=== PATIENT | male | born 1940 | race Caucasian/White ===

== ENCOUNTER 2016-10-22 15:04 | Inpatient (IN) | payer MEDICARE, BC ==
--- NOTE | 2016-10-22 15:47 | EDM.PDOC ---
[id number]: COUGH, FEVER, SHORT OF BREATH Time Seen by Provider: 10/22/16 15:46 Source: Reports: Patient, Family History Limitations: Reports: No limitations - History of Present Illness INITIAL COMMENTS - FREE TEXT/NARRATIVE: pt has been ill for about 1 week. He has been spiking a high temp and he is very congested in his ches. Timing/Duration: Reports: Day(s):, Getting worse Severity: moderate Location, General: Reports: chest Associated Symptoms: Reports: cough, fever/chills, malaise, other ( slight nausea. ) - Related Data Allergies/ADRs: Allergies Allergy/AdvReac Type Severity Reaction Status Date / Time No Known Allergies Allergy Verified 06/27/16 06:29 Home Meds: Home Meds Magnesium Oxide [Magnesium] 500 mg PO DAILY 05/29/16 [History] Acetaminophen/Diphenhydramine [Tylenol Pm Ex-Strength Caplet] 1 each PO QPM PRN 06/27/16 [History] Calcium Carbonate [Calcium] 500 mg PO DAILY 06/27/16 [History] Acetaminophen [Tylenol Extra Strength] 2 tab PO Q6H PRN 07/13/16 [History] Aspirin [Ecotrin] 81 mg PO BID 10/22/16 [History] Albuterol [IJD: Albuterol] 2.5 mg NEB QID PRN #60 nebule 10/23/16 [Rx] Codeine/guaiFENesin [Robitussin AC] 10 ml PO Q4H #240 bottle 10/23/16 [Rx] Levofloxacin 750 mg PO QPM #6 tablet 10/23/16 [Rx] predniSONE [Prednisone] 20 mg PO DAILY #3 tablet 10/23/16 [Rx] Past Medical History HEENT History: Reports: Cataract, Impaired vision Gastrointestinal History: Reports: GERD, PUD Musculoskeletal History: Reports: Arthritis Neurological History: Reports: Concussion, Migraines Psychiatric History: Reports: Depression Endocrine/Metabolic History: Reports: Obesity/BMI 30+ - Infectious Disease History Infectious Disease History: Reports: Chicken pox, Measles, Mumps - Past Surgical History HEENT Surgical History: Reports: None GI Surgical History: Reports: None Endocrine Surgical History: Reports: None Neurological Surgical History: Reports: None Musculoskeletal Surgical History: Reports: None Social & Family History - Tobacco Use Smoking Status *Q: Never Smoker Second Hand Smoke Exposure: No - Caffeine Use Caffeine Use: Reports: Soda - Recreational Drug Use Recreational Drug Use: No ED ROS GENERAL - Review of Systems Review Of Systems: See Below Constitutional: Reports: fever, chills, malaise HEENT: Reports: No symptoms Respiratory: Reports: Shortness of Breath, Wheezing, Cough Cardiovascular: Reports: No symptoms Endocrine: Reports: no symptoms GI/Abdominal: Reports: No symptoms : Reports: no symptoms Musculoskeletal: Reports: no symptoms Skin: Reports: no symptoms ED EXAM, GENERAL - Physical Exam Exam: See Below Free Text/Narrative:: pt arrived feeling sob and sat ing at 89. He was very wheezy and got quite winded with activity. Exam Limited By: Respiratory distress General Appearance: alert, moderate distress, other ( sob with any activity. ) Ears: normal TMs Nose: normal inspection Throat/Mouth: Normal inspection Head: atraumatic Neck: normal inspection Respiratory/Chest: decreased breath sounds, rhonchi, wheezing Cardiovascular: regular rate, rhythm, tachycardia GI/Abdominal: soft, non tender (Male) Exam: Deferred Rectal (Males) Exam: Deferred Back Exam: normal inspection Extremities: normal inspection Neurological: alert, oriented, normal cognition Psychiatric: normal affect Course - Vital Signs Last Recorded V/S: Last Vital Signs Temp 36.6 C 10/23/16 11:00 Pulse 73 10/23/16 11:06 Resp 18 10/23/16 11:00 BP 139/81 10/23/16 11:00 Pulse Ox 95 10/23/16 11:00 - Orders/Labs/Meds Labs: Laboratory Tests 10/22/16 10/22/16 10/22/16 Range/Units 15:45 15:45 15:45 WBC 12.7 H (4.5-11.0) K/uL RBC 4.28 L (4.30-5.90) M/uL Hgb 11.0 L (12.0-15.0) g/dL Hct 35.0 L (40.0-54.0) % MCV 82 (80-98) fL MCH 26 L (27-31) pg MCHC 31 L (32-36) % Plt Count 258 (150-400) K/uL Neut % (Auto) 82 H (36-66) % Lymph % (Auto) 8 L (24-44) % [place] % (Auto) 9 H (2-6) % Eos % (Auto) 1 L (2-4) % Baso % (Auto) 0 (0-1) % Sodium 141 (140-148) mmol/L Potassium 4.5 (3.6-5.2) mmol/L Chloride 103 (100-108) mmol/L Carbon Dioxide 30 (21-32) mmol/L Anion Gap 7.9 (5.0-14.0) mmol/L BUN 11 (7-18) mg/dL Creatinine 1.1 (0.8-1.3) mg/dL Est Cr Clr Drug Dosing 59.13 mL/min Estimated GFR (MDRD) > 60 (>60) Glucose 108 H (74-106) mg/dL Lactic Acid (0.4-2.0) mmol/L Calcium 8.1 L (8.5-10.1) mg/dL Total Bilirubin 0.5 (0.2-1.0) mg/dL AST 22 (15-37) U/L ALT 30 (12-78) U/L Alkaline Phosphatase 68 (46-116) U/L C-Reactive Protein 16.64 H (0.0-0.3) mg/dL Hkr-C-Auwssblnhsn Pept (5-450) pg/mL Total Protein 7.4 (6.4-8.2) g/dL Albumin 2.9 L (3.4-5.0) g/dL Globulin 4.5 H (2.3-3.5) g/dL Albumin/Globulin Ratio 0.6 L (1.2-2.2) Amylase (25-115) U/L Lipase (73-393) U/L Urine Color Urine Appearance Urine pH (4.5-8.0) Ur Specific Oden (1.008-1.030) Urine Protein (NEGATIVE) mg/dL Urine Glucose (UA) (NEGATIVE) mg/dL Urine Ketones (NEGATIVE) mg/dL Urine Occult Blood (NEGATIVE) Urine Nitrite (NEGAITVE) Urine Bilirubin (NEGATIVE) Urine Urobilinogen (NORMAL) mg/dL Ur Leukocyte Esterase (NEGATIVE) Urine RBC (0-5) Urine WBC (0-5) Ur Epithelial Cells Amorphous Sediment Urine Bacteria Urine Mucus 10/22/16 10/22/16 10/22/16 Range/Units 15:57 16:24 18:48 WBC (4.5-11.0) K/uL RBC (4.30-5.90) M/uL Hgb (12.0-15.0) g/dL Hct (40.0-54.0) % MCV (80-98) fL MCH (27-31) pg MCHC (32-36) % Plt Count (150-400) K/uL Neut % (Auto) (36-66) % Lymph % (Auto) (24-44) % [place] % (Auto) (2-6) % Eos % (Auto) (2-4) % Baso % (Auto) (0-1) % Sodium (140-148) mmol/L Potassium (3.6-5.2) mmol/L Chloride (100-108) mmol/L Carbon Dioxide (21-32) mmol/L Anion Gap (5.0-14.0) mmol/L BUN (7-18) mg/dL Creatinine (0.8-1.3) mg/dL Est Cr Clr Drug Dosing mL/min Estimated GFR (MDRD) (>60) Glucose (74-106) mg/dL Lactic Acid (0.4-2.0) mmol/L Calcium (8.5-10.1) mg/dL Total Bilirubin (0.2-1.0) mg/dL AST (15-37) U/L ALT (12-78) U/L Alkaline Phosphatase (46-116) U/L C-Reactive Protein (0.0-0.3) mg/dL Maa-J-Scczhsydnea Pept 40 (5-450) pg/mL Total Protein (6.4-8.2) g/dL Albumin (3.4-5.0) g/dL Globulin (2.3-3.5) g/dL Albumin/Globulin Ratio (1.2-2.2) Amylase (25-115) U/L Lipase 197 (73-393) U/L Urine Color Yellow Urine Appearance Clear Urine pH 8.0 (4.5-8.0) Ur Specific Oden 1.010 (1.008-1.030) Urine Protein Negative (NEGATIVE) mg/dL Urine Glucose (UA) Normal (NEGATIVE) mg/dL Urine Ketones Negative (NEGATIVE) mg/dL Urine Occult Blood Negative (NEGATIVE) Urine Nitrite Negative (NEGAITVE) Urine Bilirubin Negative (NEGATIVE) Urine Urobilinogen 1 (NORMAL) mg/dL Ur Leukocyte Esterase Negative (NEGATIVE) Urine RBC 0-5 (0-5) Urine WBC 0-5 (0-5) Ur Epithelial Cells Rare Amorphous Sediment Rare Urine Bacteria Not seen Urine Mucus Rare 10/22/16 10/22/16 Range/Units 18:48 18:48 WBC (4.5-11.0) K/uL RBC (4.30-5.90) M/uL Hgb (12.0-15.0) g/dL Hct (40.0-54.0) % MCV (80-98) fL MCH (27-31) pg MCHC (32-36) % Plt Count (150-400) K/uL Neut % (Auto) (36-66) % Lymph % (Auto) (24-44) % [place] % (Auto) (2-6) % Eos % (Auto) (2-4) % Baso % (Auto) (0-1) % Sodium (140-148) mmol/L Potassium (3.6-5.2) mmol/L Chloride (100-108) mmol/L Carbon Dioxide (21-32) mmol/L Anion Gap (5.0-14.0) mmol/L BUN (7-18) mg/dL Creatinine (0.8-1.3) mg/dL Est Cr Clr Drug Dosing mL/min Estimated GFR (MDRD) (>60) Glucose (74-106) mg/dL Lactic Acid 2.1 H (0.4-2.0) mmol/L Calcium (8.5-10.1) mg/dL Total Bilirubin (0.2-1.0) mg/dL AST (15-37) U/L ALT (12-78) U/L Alkaline Phosphatase (46-116) U/L C-Reactive Protein (0.0-0.3) mg/dL Inj-U-Mojawudzjkg Pept (5-450) pg/mL Total Protein (6.4-8.2) g/dL Albumin (3.4-5.0) g/dL Globulin (2.3-3.5) g/dL Albumin/Globulin Ratio (1.2-2.2) Amylase 24 L (25-115) U/L Lipase (73-393) U/L Urine Color Urine Appearance Urine pH (4.5-8.0) Ur Specific Oden (1.008-1.030) Urine Protein (NEGATIVE) mg/dL Urine Glucose (UA) (NEGATIVE) mg/dL Urine Ketones (NEGATIVE) mg/dL Urine Occult Blood (NEGATIVE) Urine Nitrite (NEGAITVE) Urine Bilirubin (NEGATIVE) Urine Urobilinogen (NORMAL) mg/dL Ur Leukocyte Esterase (NEGATIVE) Urine RBC (0-5) Urine WBC (0-5) Ur Epithelial Cells Amorphous Sediment Urine Bacteria Urine Mucus Meds: Medications Discontinued Medications Generic Name Dose Route Start Last Admin Trade Name Freq PRN Reason Stop Dose Admin Acetaminophen 650 mg 10/22/16 16:34 10/22/16 16:53 Tylenol PO 10/22/16 16:35 650 mg NOW ONE Administration Acetaminophen 650 mg 10/22/16 19:59 Tylenol PO Q4H PRN Pain (Mild 1-3)/fever Albuterol 2.5 mg 10/22/16 15:50 10/22/16 16:06 Proventil Neb Soln NEB 10/22/16 15:51 2.5 mg ONETIME ONE Administration Albuterol 2.5 mg 10/22/16 17:15 10/22/16 17:30 Proventil Neb Soln NEB 10/22/16 17:16 2.5 mg ONETIME ONE Administration Albuterol 2.5 mg 10/22/16 19:59 10/23/16 11:06 Proventil Neb Soln NEB 2.5 mg Q4H KATHRINE Administration Albuterol/Ipratropium 3 ml 10/22/16 19:59 Duoneb 3.0-0.5 Mg/3 Ml NEB Q4H PRN Shortness Of Breath/wheezing Bisacodyl 5 mg 10/22/16 19:59 Dulcolax PO DAILY PRN Constipation Diphenhydramine HCl 25 mg 10/22/16 21:00 10/22/16 21:44 Benadryl PO 25 mg BEDTIME KATHRINE Administration Docusate Sodium 100 mg 10/22/16 19:59 Colace PO BID PRN Constipation Enoxaparin Sodium 40 mg 10/22/16 21:00 10/22/16 21:44 Lovenox SUBCUT 40 mg Q24H KATHRINE Administration Guaifenesin/Codeine Phosphate 10 ml 10/22/16 20:58 10/22/16 23:56 Robitussin Ac PO 10 ml Q4H PRN Administration Cough Sodium Chloride 1,000 mls @ 25 mls/hr 10/22/16 16:30 10/22/16 16:53 Normal Saline IV 25 mls/hr ASDIRECTED KATHRINE Administration Levofloxacin/Dextrose 500 mg/ 100 mls @ 100 mls/hr 10/22/16 17:16 10/22/16 17 :30 Premix IV 10/22/16 18:15 100 mls/hr ONETIME ONE Administration Ceftriaxone Sodium 1 gm/ 50 mls @ 100 mls/hr 10/22/16 18:49 10/22/16 19:16 Sodium Chloride IV 10/22/16 19:18 100 mls/hr ONETIME ONE Administration Levofloxacin/Dextrose 750 mg/ 150 mls @ 100 mls/hr 10/23/16 16:00 Premix IV Q24H KATHRINE Sodium Chloride 1,000 mls @ 250 mls/hr 10/22/16 21:00 10/22/16 21:44 Normal Saline IV 10/23/16 00:59 Not Given ASDIRECTED KATHRINE Ceftriaxone Sodium 1 gm/ 50 mls @ 100 mls/hr 10/23/16 20:00 Sodium Chloride IV Q24H KATHRINE Sodium Chloride 1,000 mls @ 125 mls/hr 10/22/16 21:00 10/23/16 05:12 Normal Saline IV 125 mls/hr ASDIRECTED KATHRINE Administration Lorazepam 1 mg 10/22/16 19:59 Ativan IV Q6H PRN Nausea/Vomiting Methylprednisolone Sodium Succinate 125 mg 10/22/16 17:16 10/22/16 17:30 Solu-Medrol IVPUSH 10/22/16 17:17 125 mg ONETIME ONE Administration Morphine Sulfate 2 mg 10/22/16 19:59 Morphine IVPUSH Q2H PRN Pain (severe 7-10) Ondansetron HCl 4 mg 10/22/16 16:31 10/22/16 16:53 Zofran IVPUSH 10/22/16 16:32 4 mg ONETIME ONE Administration Ondansetron HCl 4 mg 10/22/16 19:59 Zofran Odt PO Q6H PRN Nausea able to take PO Oxycodone HCl 5 mg 10/22/16 19:59 Oxycodone PO Q4H PRN Pain (moderate 4-6) Pantoprazole Sodium 40 mg 10/22/16 21:00 10/23/16 08:59 Protonix Iv IVPUSH 40 mg DAILY KATHRINE Administration - Re-Assessments/Exams Free Text/Narrative Re-Assessment/Exam: 10/22/16 17:28 Pt has a crp of 16.75. his wbc is 12,ooo. His chesr xray does not show a infiltrate. . He is very wheezy and is nauseated. Pt weas offered Hosp admission and refused that. He will be given levoquin 500mg, albuterol neb x 2. solumedrol 125. iv. 10/22/16 17:30 Departure - Departure Time of Disposition: 15:00 Disposition: Home, Self-Care 01 Condition: fair Clinical Impression: Bronchitis, Bronchospasm, Dehydration
[2016-10-22] MEDS ORDERED: Albuterol 0.083% 2.5 MG/3 ML Neb Soln NEB ONE ×2 (15:50→17:15)
[2016-10-22] MEDS ORDERED: Sodium Chloride 0.9% 1,000 ML IV SCH ×3 (16:30→21:00)
[2016-10-22] MEDS ORDERED: Ondansetron 4 MG/2 ML SDV IVPUSH ONE (16:31)
[2016-10-22] MEDS ORDERED: Acetaminophen 325 MG Tab PO ONE (16:34)
[2016-10-22] MEDS ORDERED: methylPREDNISolone Sodium Succinate 125 MG/2 ML SDV IVPUSH ONE (17:16)
[2016-10-22] MEDS ORDERED: Levofloxacin/Dextrose 5%-Water 500 MG in Premix Bag 1 BAG IV ONE (17:16)
[2016-10-22] MEDS ORDERED: cefTRIAXone 1 GM in Sodium Chloride 0.9% 50 ML IV ONE (18:49)
[2016-10-22] MEDS ORDERED: Bisacodyl 5 MG Tab PO PRN (19:59)
[2016-10-22] MEDS ORDERED: oxyCODONE 5 MG Tab PO PRN (19:59)
[2016-10-22] MEDS ORDERED: Albuterol/Ipratropium 3.0-0.5 MG/3 ML Neb Soln NEB PRN (19:59)
[2016-10-22] MEDS ORDERED: Docusate Sodium 100 MG Cap PO PRN (19:59)
[2016-10-22] MEDS ORDERED: Acetaminophen 325 MG Tab PO PRN (19:59)
[2016-10-22] MEDS ORDERED: Ondansetron 4 MG Tab.DIS PO PRN (19:59)
[2016-10-22] MEDS ORDERED: LORazepam 2 MG/ML MDV IV PRN (19:59)
[2016-10-22] MEDS ORDERED: Morphine 2 MG/ML Syringe IVPUSH PRN (19:59)
[2016-10-22] MEDS ORDERED: Codeine/guaiFENesin 100mg-10 MG/5 ML Syrup 10 ML Cup PO PRN (20:58)
[2016-10-22] MEDS ORDERED: diphenhydrAMINE 25 MG Cap PO SCH (21:00)
[2016-10-22] MEDS ORDERED: Enoxaparin 40 MG/0.4 ML Syringe SUBCUT SCH (21:00)
[2016-10-22] MEDS: Albuterol 0.083% 2.5 MG/3 ML Neb Soln NEB SCH ×2 (21:44→23:56)
[2016-10-22] MEDS: Pantoprazole 40 MG Vial IVPUSH SCH (21:44)
[2016-10-23] MEDS: Albuterol 0.083% 2.5 MG/3 ML Neb Soln NEB SCH ×3 (03:57→11:06)
--- NOTE | 2016-10-23 04:14 | PCM.HP ---
H&P History of Present Illness - General Admit Problem/Dx: Admission Diagnosis/Problem Admission Diagnosis/Problem Pneumonia Source of Information: Patient History Limitations: Reports: No limitations - History of Present Illness Initial Comments - Free Text/Narative: 10/22/16 17:28 Pt has a crp of 16.75. his wbc is 12,ooo. His chesr xray does not show a infiltrate. He is very wheezy and is nauseated. Pt was offered Hosp admission and refused that. He will be given levoquin 500mg, albuterol neb x 2. solumedrol 125. iv. 10/22/16 17:30 Onset of Symptoms: Reports: gradual Duration of Symptoms: Reports: Day(s): Location: Reports: generalized Improves with: Reports: Rest Worsens with: Reports: Movement Associated Symptoms: Reports: denies other symptoms - Related Data Allergies/Adverse Reactions: Allergies Allergy/AdvReac Type Severity Reaction Status Date / Time No Known Allergies Allergy Verified 06/27/16 06:29 Home Medications: Home Meds Magnesium Oxide [Magnesium] 500 mg PO DAILY 05/29/16 [History] Acetaminophen/Diphenhydramine [Tylenol Pm Ex-Strength Caplet] 1 each PO QPM PRN 06/27/16 [History] Calcium Carbonate [Calcium] 500 mg PO DAILY 06/27/16 [History] Acetaminophen [Tylenol Extra Strength] 2 tab PO Q6H PRN 07/13/16 [History] Aspirin [Ecotrin] 81 mg PO BID 10/22/16 [History] Albuterol [IJD: Albuterol] 2.5 mg NEB QID PRN #60 nebule 10/23/16 [Rx] Codeine/guaiFENesin [Robitussin AC] 10 ml PO Q4H #240 bottle 10/23/16 [Rx] Levofloxacin 750 mg PO QPM #6 tablet 10/23/16 [Rx] predniSONE [Prednisone] 20 mg PO DAILY #3 tablet 10/23/16 [Rx] Past Medical History HEENT History: Reports: Cataract, Impaired vision Gastrointestinal History: Reports: GERD, PUD Musculoskeletal History: Reports: Arthritis Neurological History: Reports: Concussion, Migraines Psychiatric History: Reports: Depression Endocrine/Metabolic History: Reports: Obesity/BMI 30+ - Infectious Disease History Infectious Disease History: Reports: Chicken pox, Measles, Mumps - Past Surgical History HEENT Surgical History: Reports: None GI Surgical History: Reports: None Endocrine Surgical History: Reports: None Neurological Surgical History: Reports: None Musculoskeletal Surgical History: Reports: None Social & Family History - Tobacco Use Smoking Status *Q: Never Smoker Second Hand Smoke Exposure: No - Caffeine Use Caffeine Use: Reports: None - Recreational Drug Use Recreational Drug Use: No - Living Situation & Occupation Living situation: Reports: Occupation: employed (lives with , has 12 children, 68 Grand 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.) H&P Review of Systems - Review of Systems: Review Of Systems: See Below General: Reports: fever, chills, malaise, weakness, decreased appetite HEENT: Reports: sinus congestion Pulmonary: Reports: Shortness of Breath, Wheezing, Pleuritic Chest Pain, Cough, Sputum Gastrointestinal: Reports: Nausea Genitourinary: Reports: no symptoms Musculoskeletal: Reports: no symptoms Skin: Reports: no symptoms Psychiatric: Reports: no symptoms Neurological: Reports: No Symptoms Hematologic/Lymphatic: Reports: no symptoms Immunologic: Reports: no symptoms Exam - Exam Exam: See Below - Vital Signs Vital Signs: Last Vital Signs Temp 36.4 C 10/23/16 03:59 Pulse 82 10/23/16 03:59 Resp 16 10/23/16 03:59 BP 139/82 10/23/16 03:59 Pulse Ox 97 10/23/16 03:59 Weight: 99.79 kg - Exam Quality Assessment: supplemental oxygen General: alert, oriented, 4 HEENT: PERRLA, Conjunctiva clear, EACs clear, EOMI, Hearing intact, Mucosa moist & pink, Nares patent, Normal nasal septum, Posterior pharynx clear, TMs clear, Other (natural teeth) Neck: supple, trachea midline, 2 Lungs: Decreased breath sounds, Crackles, Rales, Rhonchi Cardiovascular: regular rate, regular rhythm, normal S1, normal S2 Abdomen: Normal Bowel Sounds, Soft (Male) Exam: Deferred Rectal (Males) Exam: Deferred Back Exam: normal inspection, full range of motion, NT Extremities: normal inspection Skin: warm, dry, intact Neurological: reflexes equal bilateral Neuro Extensive - Mental Status: alert, oriented x3, normal mood/affect, normal cognition, memory intact Neuro Extensive - Motor, Sensory, Reflexes: normal gait, normal reflexes Psychiatric: alert, normal affect, normal mood - Patient Data Result Diagrams: 10/23/16 04:20 10/23/16 04:41 *Q Meaningful Use (ADM) - VTE *Q VTE Criteria *Q: - Stroke *Q Stroke Criteria *Q: - AMI *Q AMI Criteria *Q: - Problem List (1) Bronchitis SNOMED Code(s): 75853132 ICD Code: J40 - BRONCHITIS, NOT SPECIFIED ACUTE OR CHRONIC Status: Acute Priority: High (2) Dehydration SNOMED Code(s): 92947444 ICD Code: E86.0 - DEHYDRATION Status: Acute Problem List Initiated/Reviewed/Updated: Yes Orders Last 24hrs: Active Orders 24 hr Category Date Time Status Patient Status [ADT] Routine ADT 10/22/16 19:59 Active Intake and Output [RC] QSHIFT Care 10/22/16 19:59 Active Notify Provider Vital Signs [RC] ASDIRECTED Care 10/22/16 19:59 Active Oxygen Therapy [RC] PRN Care 10/22/16 19:59 Active Pneumonia Education [RC] DAILY Care 10/22/16 19:59 Active Pulse Oximetry [RC] CONTINUOUS Care 10/22/16 19:59 Active Up ad Whitney [RC] ASDIRECTED Care 10/22/16 19:59 Active VTE/DVT Education [RC] Per Unit Routine Care 10/22/16 19:59 Active Vital Signs [RC] Q4H Care 10/22/16 19:59 Active Regular Diet [DIET] Diet 10/22/16 Breakfast Active Chest 2V [CR] AM Exams 10/23/16 05:11 Ordered BASIC METABOLIC PANEL,BMP [CHEM] Timed Lab 10/23/16 05:10 Ordered CBC WITH AUTO DIFF [HEME] AM Lab 10/23/16 05:11 Ordered Acetaminophen [Tylenol] Med 10/22/16 19:59 Active 650 mg PO Q4H PRN Albuterol [Proventil Neb Soln] Med 10/22/16 19:59 Active 2.5 mg NEB Q4H Albuterol/Ipratropium [DuoNeb 3.0-0.5 MG/3 ML] Med 10/22/16 19:59 Active 3 ml NEB Q4H PRN Bisacodyl [Dulcolax] Med 10/22/16 19:59 Active 5 mg PO DAILY PRN Codeine/guaiFENesin [Robitussin AC] Med 10/22/16 20:58 Active 10 ml PO Q4H PRN Docusate Sodium [Colace] Med 10/22/16 19:59 Active 100 mg PO BID PRN Enoxaparin [Lovenox] Med 10/22/16 21:00 Active 40 mg SUBCUT Q24H LORazepam [Ativan] Med 10/22/16 19:59 Active 1 mg IV Q6H PRN Levofloxacin/Dextrose 5%-Water [Levaquin in D5W 750 MG/ Med 10/23/16 16:00 Active 150 ML] 750 mg Premix Bag 1 bag IV Q24H Morphine Med 10/22/16 19:59 Active 2 mg IVPUSH Q2H PRN Ondansetron [Zofran ODT] Med 10/22/16 19:59 Active 4 mg PO Q6H PRN Pantoprazole [ProTONIX IV] Med 10/22/16 21:00 Active 40 mg IVPUSH DAILY Sodium Chloride 0.9% [Normal Saline] 1,000 ml Med 10/22/16 21:00 Active IV ASDIRECTED cefTRIAXone [Rocephin] 1 gm Med 10/23/16 20:00 Active Sodium Chloride 0.9% [Normal Saline] 50 ml IV Q24H diphenhydrAMINE [Benadryl] Med 10/22/16 21:00 Active 25 mg PO BEDTIME oxyCODONE Med 10/22/16 19:59 Active 5 mg PO Q4H PRN Blood Culture x2 Reflex Set [OM.PC] Urgent Oth 10/22/16 19:59 Ordered Give supplemental Oxygen PRN [COMM] Routine Oth 10/22/16 19:59 Ordered Resuscitation Status Routine Resus Stat 10/22/16 19:34 Ordered Medication Orders Acetaminophen (Tylenol) 650 mg PO Q4H PRN PRN Reason: Pain (Mild 1-3)/fever Albuterol (Proventil Neb Soln) 2.5 mg NEB Q4H KATHRINE Last Admin: 10/23/16 03:57 Dose: 2.5 mg Admin: 10/22/16 23:56 Dose: 2.5 mg Admin: 10/22/16 21:44 Dose: 2.5 mg Albuterol/Ipratropium (Duoneb 3.0-0.5 Mg/3 Ml) 3 ml NEB Q4H PRN PRN Reason: Shortness Of Breath/wheezing Bisacodyl (Dulcolax) 5 mg PO DAILY PRN PRN Reason: Constipation Diphenhydramine HCl (Benadryl) 25 mg PO BEDTIME [facility] Last Admin: 10/22/16 21:44 Dose: 25 mg Docusate Sodium (Colace) 100 mg PO BID PRN PRN Reason: Constipation Enoxaparin Sodium (Lovenox) 40 mg SUBCUT Q24H [facility] Last Admin: 10/22/16 21:44 Dose: 40 mg Guaifenesin/Codeine Phosphate (Robitussin Ac) 10 ml PO Q4H PRN PRN Reason: Cough Last Admin: 10/22/16 23:56 Dose: 10 ml Levofloxacin/Dextrose 750 mg/ (Premix) 150 mls @ 100 mls/hr IV Q24H [facility] Ceftriaxone Sodium 1 gm/ (Sodium Chloride) 50 mls @ 100 mls/hr IV Q24H [facility] Sodium Chloride (Normal Saline) 1,000 mls @ 125 mls/hr IV ASDIRECTED [facility] Lorazepam (Ativan) 1 mg IV Q6H PRN PRN Reason: Nausea/Vomiting Morphine Sulfate (Morphine) 2 mg IVPUSH Q2H PRN PRN Reason: Pain (severe 7-10) Ondansetron HCl (Zofran Odt) 4 mg PO Q6H PRN PRN Reason: Nausea able to take PO Oxycodone HCl (Oxycodone) 5 mg PO Q4H PRN PRN Reason: Pain (moderate 4-6) Pantoprazole Sodium (Protonix Iv) 40 mg IVPUSH DAILY [facility] Last Admin: 10/22/16 21:44 Dose: 40 mg Assessment/Plan Comment:: ASSESSMENT / PLAN -This is a male present to ER with complaints of shortness of breath, he decided to come to the hospital/ER for further care and treatment Plan Bronchitis vs Pneumonia -Admit to [address] [place] [address] for further monitoring -Telemetry -Oxygen per nasal cannula -IV fluids for rehydration NS at 75 mL per hour -Advise to notify nurses of any chest pain or other symptoms -And a.m. labs: CBC, BMP, Maintenance issues -Orders home meds: -Nutrition: Regular diet -Jeff catheter not indicated at this time -DVT:lovanox -GI prophylaxis; Protonix 40mg iv CODE STATUS: Full Admission status: Admit to [address] [place] [address] Admission justification. This patient will be admitted for inpatient services and is medically appropriate meeting medical necessity for inpatient admission as outlined in my documentation. I reasonably expect the patient will require inpatient services that span. Time over 2 midnights. I reasonably expect this patient to be discharged or transferred within 96 hours after admission to the critical access hospital Disposition;home Primary care provider: Dr. Angel
[2016-10-23] MEDS: Pantoprazole 40 MG Vial IVPUSH SCH (08:59)
--- NOTE | 2016-10-23 10:15 | CR ---
Chest 2V FINDINGS: The heart and vascular structures are normal in appearance. No infiltrates or effusions ar e demonstrated. There is a hiatal hernia. The skeletal structures are unremarkable. IMPRESSION: 1. No acute findings.
--- NOTE | 2016-10-23 10:16 | CR ---
Chest 2V Comparison: Previous day. FINDINGS: The heart and vascular structures are normal in appearance. No infiltrates or effusions ar e demonstrated. The skeletal structures are unremarkable. IMPRESSION: Stable exam.
[2016-10-23 11:19] VITALS: BP 139/81
--- NOTE | 2016-10-23 14:19 | PCM.DCSUM1 ---
Discharge Summary - Hospital Course Brief History: 76-year-old male who presents with cough, fever and shortness of breath and was admitted for management of acute bronchitis. - Discharge Data Discharge Date: 10/23/16 Discharge Disposition: Home, Self-Care 01 Condition: Good - Discharge Diagnosis/Problem(s) (1) Bronchitis SNOMED Code(s): 68701152 ICD Code: J40 - BRONCHITIS, NOT SPECIFIED ACUTE OR CHRONIC Status: Acute Priority: High (2) Bronchospasm SNOMED Code(s): 9532672 ICD Code: J98.01 - ACUTE BRONCHOSPASM Status: Acute - Patient Summary/Data Hospital Course: Michael presented to the emergency room last night with fever, cough and shortness of breath. Workup in the emergency room was suggestive of acute bronchitis with hypoxia. Initially the patient was not excited about being admitted to the hospital and wanted to go home but later agreed to admission because of his hypoxia and oxygen requirement. He was started on levofloxacin at the time of hospital admission. He needed some supplemental oxygen overnight. He was also given steroids at the time of presentation. Overnight his condition improved fairly quickly with less shortness of breath and he does have a mild cough that is loose but nonproductive for sputum. Vital signs have been stable and he has not had any fevers since he was in the emergency room. He no longer require supplemental oxygen. He is interested in going home at this time. The plan is for 6 additional days of antibiotics and 3 additional days of steroids. He will followup in a few days if symptoms are not getting better or get worse. The patient made quite a dramatic improvement just overnight following hospital admission. His improvement with faster than expected. - Patient Instructions Diet: Regular Diet as Tolerated Activity: As Tolerated Driving: May Drive Today Showering/Bathing: May Shower Notify Provider of: Fever, Increased Pain, Nausea and/or Vomiting Other/Special Instructions: 1. You were in the hospital for management of acute bronchitis with bronchospasm. I recommend that you take levofloxacin 750 mg once daily at suppertime for 6 more days. You should also take prednisone 20 mg once daily in the morning for 3 days. You can use your DuoNeb nebulizers 4 times daily as needed for shortness of breath. 2. Listen to your body and if you're feeling short of breath or fatigued please rest for a while. You may need a few days to recuperate and get back to full speed. 3. Please seek medical attention if you develop fever greater than 101, have significant worsening of your shortness of breath or develop chest pain/pressure. - Discharge Plan Prescriptions/Med Rec: Albuterol [IJD: Albuterol] 2.5 mg NEB QID PRN #60 nebule PRN Reason: shortness of breath Codeine/guaiFENesin [Robitussin AC] 10 ml PO Q4H #240 bottle Levofloxacin 750 mg PO QPM #6 tablet predniSONE [Prednisone] 20 mg PO DAILY #3 tablet Home Medications: Home Meds Magnesium Oxide [Magnesium] 500 mg PO DAILY 05/29/16 [History] Acetaminophen/Diphenhydramine [Tylenol Pm Ex-Strength Caplet] 1 each PO QPM PRN 06/27/16 [History] Calcium Carbonate [Calcium] 500 mg PO DAILY 06/27/16 [History] Acetaminophen [Tylenol Extra Strength] 2 tab PO Q6H PRN 07/13/16 [History] Aspirin [Ecotrin] 81 mg PO BID 10/22/16 [History] Albuterol [IJD: Albuterol] 2.5 mg NEB QID PRN #60 nebule 10/23/16 [Rx] Codeine/guaiFENesin [Robitussin AC] 10 ml PO Q4H #240 bottle 10/23/16 [Rx] Levofloxacin 750 mg PO QPM #6 tablet 10/23/16 [Rx] predniSONE [Prednisone] 20 mg PO DAILY #3 tablet 10/23/16 [Rx] Patient Handouts: Bronchospasm, Adult, Dehydration, Adult, [id number], Acute Bronchitis, [id number], Levofloxacin tablets Referrals: Dav Angel MD [Primary Care Provider] - - Discharge Summary/Plan Comment DC Time >30 min.: No (25) - Patient Data Vitals - Most Recent: Last Vital Signs Temp 36.6 C 10/23/16 11:00 Pulse 73 10/23/16 11:06 Resp 18 10/23/16 11:00 BP 139/81 10/23/16 11:00 Pulse Ox 95 10/23/16 11:00 Weight - Most Recent: 99.79 kg I&O - Last 24 hours: Intake & Output 10/22/16 10/23/16 10/23/16 22:59 06:59 14:59 Intake Total 240 1920 740 Output Total 400 1450 450 Balance -160 470 290 Lab Results - Last 24 hrs: Laboratory Results - last 24 hr 10/23/16 10/23/16 Range/Units 04:20 04:41 WBC 7.7 (4.5-11.0) K/uL RBC 3.99 L (4.30-5.90) M/uL Hgb 10.1 L (12.0-15.0) g/dL Hct 32.6 L (40.0-54.0) % MCV 82 (80-98) fL MCH 25 L (27-31) pg MCHC 31 L (32-36) % Plt Count 228 (150-400) K/uL Neut % (Auto) 92 H (36-66) % Lymph % (Auto) 6 L (24-44) % Craig % (Auto) 2 (2-6) % Eos % (Auto) 0 L (2-4) % Baso % (Auto) 0 (0-1) % Sodium 141 (140-148) mmol/L Potassium 4.3 (3.6-5.2) mmol/L Chloride 106 (100-108) mmol/L Carbon Dioxide 26 (21-32) mmol/L Anion Gap 9.2 (5.0-14.0) mmol/L BUN 11 (7-18) mg/dL Creatinine 1.0 (0.8-1.3) mg/dL Est Cr Clr Drug Dosing 65.91 mL/min Estimated GFR (MDRD) > 60 (>60) Glucose 194 H (74-106) mg/dL Calcium 7.8 L (8.5-10.1) mg/dL Med Orders - Current: Current Medications Acetaminophen (Tylenol) 650 mg PO Q4H PRN PRN Reason: Pain (Mild 1-3)/fever Albuterol (Proventil Neb Soln) 2.5 mg NEB Q4H [facility]AT[facility]INE Last Admin: 10/23/16 11:06 Dose: 2.5 mg Albuterol/Ipratropium (Duoneb 3.0-0.5 Mg/3 Ml) 3 ml NEB Q4H PRN PRN Reason: Shortness Of Breath/wheezing Bisacodyl (Dulcolax) 5 mg PO DAILY PRN PRN Reason: Constipation Diphenhydramine HCl (Benadryl) 25 mg PO BEDTIME [facility] Last Admin: 10/22/16 21:44 Dose: 25 mg Docusate Sodium (Colace) 100 mg PO BID PRN PRN Reason: Constipation Enoxaparin Sodium (Lovenox) 40 mg SUBCUT Q24H [facility] Last Admin: 10/22/16 21:44 Dose: 40 mg Guaifenesin/Codeine Phosphate (Robitussin Ac) 10 ml PO Q4H PRN PRN Reason: Cough Last Admin: 10/22/16 23:56 Dose: 10 ml Levofloxacin/Dextrose 750 mg/ (Premix) 150 mls @ 100 mls/hr IV Q24H [facility] Ceftriaxone Sodium 1 gm/ (Sodium Chloride) 50 mls @ 100 mls/hr IV Q24H [facility] Sodium Chloride (Normal Saline) 1,000 mls @ 125 mls/hr IV ASDIRECTED [facility] Last Admin: 10/23/16 05:12 Dose: 125 mls/hr Lorazepam (Ativan) 1 mg IV Q6H PRN PRN Reason: Nausea/Vomiting Morphine Sulfate (Morphine) 2 mg IVPUSH Q2H PRN PRN Reason: Pain (severe 7-10) Ondansetron HCl (Zofran Odt) 4 mg PO Q6H PRN PRN Reason: Nausea able to take PO Oxycodone HCl (Oxycodone) 5 mg PO Q4H PRN PRN Reason: Pain (moderate 4-6) Pantoprazole Sodium (Protonix Iv) 40 mg IVPUSH DAILY [facility] Last Admin: 10/23/16 08:59 Dose: 40 mg Discontinued Medications Acetaminophen (Tylenol) 650 mg PO NOW ONE Stop: 10/22/16 16:35 Last Admin: 10/22/16 16:53 Dose: 650 mg Albuterol (Proventil Neb Soln) 2.5 mg NEB ONETIME ONE Stop: 10/22/16 15:51 Last Admin: 10/22/16 16:06 Dose: 2.5 mg Albuterol (Proventil Neb Soln) 2.5 mg NEB ONETIME ONE Stop: 10/22/16 17:16 Last Admin: 10/22/16 17:30 Dose: 2.5 mg Sodium Chloride (Normal Saline) 1,000 mls @ 25 mls/hr IV ASDIRECTED [facility] Last Admin: 10/22/16 16:53 Dose: 25 mls/hr Levofloxacin/Dextrose 500 mg/ (Premix) 100 mls @ 100 mls/hr IV ONETIME ONE Stop: 10/22/16 18:15 Last Admin: 10/22/16 17:30 Dose: 100 mls/hr Ceftriaxone Sodium 1 gm/ (Sodium Chloride) 50 mls @ 100 mls/hr IV ONETIME ONE Stop: 10/22/16 19:18 Last Admin: 10/22/16 19:16 Dose: 100 mls/hr Sodium Chloride (Normal Saline) 1,000 mls @ 250 mls/hr IV ASDIRECTED [facility] Stop: 10/23/16 00:59 Last Admin: 10/22/16 21:44 Dose: Not Given Methylprednisolone Sodium Succinate (Solu-Medrol) 125 mg IVPUSH ONETIME ONE Stop: 10/22/16 17:17 Last Admin: 10/22/16 17:30 Dose: 125 mg Ondansetron HCl (Zofran) 4 mg IVPUSH ONETIME ONE Stop: 10/22/16 16:32 Last Admin: 10/22/16 16:53 Dose: 4 mg *Q Meaningful Use (DIS) - VTE *Q VTE Criteria *Q: - Stroke *Q Stroke Criteria *Q: - AMI *Q AMI Criteria *Q:
[2016-10-23] MEDS ORDERED: Levofloxacin/Dextrose 5%-Water 750 MG in Premix Bag 1 BAG IV SCH (16:00)
[2016-10-23] MEDS ORDERED: cefTRIAXone 1 GM in Sodium Chloride 0.9% 50 ML IV SCH (20:00)
== END 2016-10-23 15:02 | disposition home or self-care (01) | DRG 203 ==
LOC: JP.ED 15:04 → JP.MS 19:32
PROVIDERS: ADMIT Hospitalist; ATTEND Internal Medicine
DX: J20.9 Acute bronchitis, unspecified (principal); E86.0 Dehydration; R09.02 Hypoxemia; M19.90 Unspecified osteoarthritis, unspecified site; H54.7 Unspecified visual loss; Z79.82 Long term (current) use of aspirin; Z79.52 Long term (current) use of systemic steroids
CPT/HCPCS: 36415; 71020 ×2; 80053; 81001; 82150; 83605; 83690; 83880; 85025; 86140; 87040 ×2; 87070; 87205; 87804 ×2; 96361; 96365; 96367; 96375; 99285; A9270; J0696; J1956; J2405; J2930; J7040; J7050; 80048; 94640-76; 94762; 99284; C9113; J1650

== ENCOUNTER 2017-08-09 06:34 | Day surgery (SDC) | payer MEDICARE, BC ==
[2017-08-09] MEDS ORDERED: Sodium Chloride 0.9% 10 ML SDV FLUSH PRN ×3 (07:45→11:42)
[2017-08-09 08:35] VITALS: BP 169/80
[2017-08-09] MEDS ORDERED: Sodium Chloride 0.9% 10 ML Syringe FLUSH PRN (11:43)
--- NOTE | 2017-08-09 11:56 | OR ---
DATE OF PROCEDURE: 08/09/2017 POSTOPERATIVE CARE: Postoperative care will be provided mainly at the [address] [place] [address] [facility] in conjunction with [facility]. PREOPERATIVE DIAGNOSIS: Cataract, right eye. PREOPERATIVE DIAGNOSIS: Cataract, right eye. PROCEDURE: Cataract extraction, phacoemulsification with intraocular lens placement, right eye. ANESTHESIA: Topical and intracameral. ESTIMATED BLOOD LOSS: Minimal. COMPLICATIONS: None. PATHOLOGY SPECIMENS: None. SURGICAL FINDINGS: None. INDICATION FOR PROCEDURE: The patient is a 77-year-old male with history of a visually significant cataract in the right eye, which interfered with activities of daily living. This consisted of a nuclear sclerosis cataract. Following careful discussion of the risks, benefits and alternatives to cataract extraction with intraocular lens placement including blindness and , the patient elected to proceed, and informed, written consent was obtained prior to the procedure. DESCRIPTION OF THE PROCEDURE: The patient was previously identified, and a lee placed above the right eye. All sources, including the patient, indicated that the right eye was the correct eye. The patient was subsequently taken to the operating room where standard monitors were applied. The patient was then prepped and draped in the usual sterile fashion for ophthalmic surgery. Attention was first directed at the 12 o'clock position where a paracentesis port was fashioned. Shugar solution followed by Viscoat was instilled into the eye. Attention was then directed to the 8:30 position where a triplanar incision was made in a near-clear manner using a keratome. A continuous capsulorrhexis was then made using a combination of the cystotome and Utrata forceps. Hydrodissection was achieved using a balanced salt solution, and the lens rotated nicely. Phacoemulsification was then done using a modified [id number] technique without complication. Phaco time was 9.46 CDE. The remaining cortex was removed using the irrigation/aspiration handpiece. Provisc was then instilled into the eye. A Technis lens, model [id number], at 21.0 diopters was then placed in the capsular bag using an [place] injector. The remaining viscoelastic was removed using the irrigation/aspiration forceps. All wounds were then checked and found to be watertight. The lid speculum and drapes were removed. Maxitrol ointment was placed in the patient's right eye, and the eye was shielded. The patient tolerated the procedure well. The patient was instructed to follow up tomorrow. All needle and sponge counts were correct at the end of the procedure. Tiarra Ayala MD /[id number]
== END 2017-08-09 09:07 | disposition home or self-care (01) ==
LOC: JP.SDS 06:34
PROVIDERS: ATTEND Ophthalmology
DX: H25.11 Age-related nuclear cataract, right eye (principal)
CPT/HCPCS: 66984; C1780; J7050

== ENCOUNTER 2017-08-23 05:51 | Day surgery (SDC) | payer MEDICARE, BC ==
[2017-08-23] MEDS ORDERED: Sodium Chloride 0.9% 10 ML Syringe FLUSH PRN (06:30)
[2017-08-23 07:51] VITALS: BP 144/89
--- NOTE | 2017-08-23 12:47 | OR ---
DATE OF PROCEDURE: 08/23/2017 POSTOPERATIVE CARE: Postoperative care will be provided mainly at the [address] [place] [address] [facility] in conjunction with [facility]. PREOPERATIVE DIAGNOSIS: Cataract, left eye. POSTOPERATIVE DIAGNOSIS: Cataract, left eye. PROCEDURE: Phacoemulsification with intraocular lens placement, left eye. ANESTHESIA: Topical and intracameral. ESTIMATED BLOOD LOSS: Minimal. COMPLICATIONS: None. PATHOLOGY SPECIMENS: None. SURGICAL FINDINGS: None. INDICATION FOR PROCEDURE: The patient is a 77-year-old male with history of a visually significant cataract in the left eye, which interfered with activities of daily living. This consisted of a nuclear sclerosis cataract. Following careful discussion of the risks, benefits and alternatives to cataract extraction with intraocular lens placement including blindness and , the patient elected to proceed, and informed, written consent was obtained prior to the procedure. DESCRIPTION OF THE PROCEDURE: The patient was previously identified, and a lee placed above the left eye. All sources, including the patient, indicated that the left eye was the correct eye. The patient was subsequently taken to the operating room where standard monitors were applied. The patient was then prepped and draped in the usual sterile fashion for ophthalmic surgery. Attention was first directed at the 12 o'clock position where a paracentesis port was fashioned. Shugar solution followed by Viscoat was instilled into the eye. Attention was then directed to the 8:30 position where a triplanar incision was made in a near-clear manner using a keratome. A continuous capsulorrhexis was then made using a combination of the cystotome and Utrata forceps. Hydrodissection was achieved using a balanced salt solution, and the lens rotated nicely. Phacoemulsification was then done using a modified [id number] technique without complication. Phaco time was 4.59 CDE. The remaining cortex was removed using the irrigation/aspiration handpiece. Provisc was then instilled into the eye. A Technis lens, model [id number], at 21.0 diopters was then placed in the capsular bag using an [place] injector. The remaining viscoelastic was removed using the irrigation/aspiration forceps. All wounds were then checked and found to be watertight. The lid speculum and drapes were removed. Maxitrol ointment was placed in the patient's left eye, and the eye was shielded. The patient tolerated the procedure well. The patient was instructed to follow up tomorrow. All needle and sponge counts were correct at the end of the procedure. Tiarra Ayala MD /[id number]
== END 2017-08-23 08:19 | disposition home or self-care (01) ==
LOC: JP.SDS 05:51
PROVIDERS: ATTEND Ophthalmology
DX: H25.12 Age-related nuclear cataract, left eye (principal)
CPT/HCPCS: 66984; C1780; J7050